=== PATIENT | female | born 1995 | race Caucasian/White ===

== ENCOUNTER → 2016-11-26 | Outpatient (CLI) | payer OTHER ==
[2016-11-26 14:47] LABS: FREE T4 1.12 NG/DL (0.78-1.33)
[2016-11-27 08:50] LABS: THYROID PEROXIDASE ANTIBODY 141.2 U/ML (<60.0)
== END ==
LOC: M SMT 11:33
PROVIDERS: ATTEND Physician Assistant
DX: E03.9 Hypothyroidism, unspecified (principal)

== ENCOUNTER → 2016-11-27 | Outpatient (CLI) | payer OTHER ==
[2016-11-27 13:18] LABS: CONTROL LINE HCG INT CTR LINE PRESENT
[2016-11-27 13:39] LABS: PROLACTIN 12.1 NG/ML
== END ==
LOC: M SMT 10:48
PROVIDERS: ATTEND Nurse Practitioner Women's Health
DX: N92.6 Irregular menstruation, unspecified (principal)

== ENCOUNTER → 2016-12-24 | Outpatient (CLI) | payer OTHER ==
[2016-12-24 14:01] LABS: FREE T4 1.06 NG/DL (0.78-1.33)
== END ==
LOC: M SMT 10:31
PROVIDERS: ATTEND Physician Assistant
DX: E06.3 Autoimmune thyroiditis (principal)

== ENCOUNTER 2017-02-16 13:18 | Emergency (ER) | payer OTHER ==
[~2017-02-16] VITALS: Ht 162.6 cm; Wt 68.0 kg
[2017-02-16 13:36] VITALS: BP 129/74
[2017-02-16] MEDS ORDERED: ADACEL/BOOSTRIX VACCINE (DIPHTH/PERTUSS/ACELL/TETANUS)0.5ML SYR (90715) IM ONE (14:30)
== END 2017-02-16 15:01 | disposition home or self-care (01) ==
LOC: M ED 14:40
DX: S01.511A Laceration without foreign body of lip, initial encounter (principal); W26.8XXA Contact with other sharp object(s), not elsewhere classified, initial encounter; Y92.9 Unspecified place or not applicable; Y93.9 Activity, unspecified; Y99.9 Unspecified external cause status; Z88.2 Allergy status to sulfonamides

== ENCOUNTER 2017-06-10 09:21 | Emergency (ER) | payer OTHER ==
[~2017-06-10] VITALS: Ht 162.6 cm; Wt 66.8 kg
[2017-06-10 09:23] VITALS: BP 109/62
--- NOTE | 2017-06-10 11:06 | REP ---
OB sonogram: History: 10.5 weeks gestation. Pelvic pain. Findings: Transabdominal scanning demonstrates a viable single intrauterine gestation in a free-floating lie. [place]-rump length is 2.1 mm which corresponds to a 5 week 5 day gestational age estimate. heart rate is recorded at 100 beats per minute. No subchorionic hemorrhage is seen. There is a 2.6 cm right ovary and cyst consistent with corpus luteum. Impression: Viable single intrauterine gestation at 5 weeks 5 days by crown-rump length. ALISHA by sonography February 05, 2018. No complication identified. Signed by Rafael Lawler MD 06/10/2017 12:15 P
== END 2017-06-10 11:10 | disposition home or self-care (01) ==
LOC: M ED 09:21
DX: O26.891 Other specified pregnancy related conditions, first trimester (principal); Z3A.00 Weeks of gestation of pregnancy not specified; Z88.2 Allergy status to sulfonamides

== ENCOUNTER → 2017-06-12 | Outpatient (REF) | payer OTHER ==
[2017-06-12 20:03] LABS: MEAN CORPUSCULAR HEMOGLOBIN 29.8 pg (27.0-33.0); MEAN CORPUSCULAR HGB CONC 33.7 g/dl (32.0-36.5); MEAN CORPUSCULAR VOLUME 88.4 fl (80.0-96.0); RED CELL DISTRIBUTION WIDTH 12.5 % (11.5-14.5); WHITE BLOOD COUNT 8.7 K/mm3 (4.0-10.0)
[2017-06-12 20:41] LABS: FREE T4 1.69 NG/DL (0.76-1.46); HCG, SERUM QUANTITATIVE 63800 MIU/ML
== END ==
LOC: M LAB REF 13:57
PROVIDERS: ATTEND Advanced Practice Midwife
DX: O36.80X0 Pregnancy with inconclusive fetal viability, not applicable or unspecified (principal)

== ENCOUNTER → 2017-06-17 | Outpatient (REF) | payer OTHER ==
[2017-06-17 19:10] LABS: THYROXINE (T4) 10.6 UG/DL (4.5-12.0)
== END ==
LOC: M LAB REF 16:44
PROVIDERS: ATTEND Advanced Practice Midwife
DX: E03.9 Hypothyroidism, unspecified (principal)

== ENCOUNTER → 2017-08-07 | Outpatient (REF) | payer OTHER ==
[2017-08-07 14:07] LABS: FREE T4 1.08 NG/DL (0.76-1.46)
== END ==
LOC: M LAB REF 13:01
PROVIDERS: ATTEND Obstetrics & Gynecology
DX: E03.9 Hypothyroidism, unspecified (principal)

== ENCOUNTER → 2017-10-29 | Outpatient (REF) | payer OTHER, SELFPAY ==
[2017-10-29 14:32] LABS: FREE T4 1.11 NG/DL (0.76-1.46)
[2017-11-01 00:07] LABS: HSV TYPE I IgM AB <1:10 titer (<1:10); HSV TYPE II IgM ABY <1:10 titer (<1:10)
== END ==
LOC: M LAB REF 13:13
DX: O99.282 Endocrine, nutritional and metabolic diseases complicating pregnancy, second trimester (principal)
CPT/HCPCS: 84443

== ENCOUNTER → 2017-11-06 | Outpatient (CLI) | payer OTHER ==
[2017-11-06 18:41] LABS: GLUCOSE CHALLENGE TEST 1 HOUR 83 MG/DL (LESS THAN 140)
[2017-11-06 20:28] LABS: HEMOGLOBIN 11.2 g/dl (12.0-16.0); MEAN CORPUSCULAR HEMOGLOBIN 29.9 pg (27.0-33.0); MEAN CORPUSCULAR HGB CONC 32.9 g/dl (32.0-36.5); MEAN CORPUSCULAR VOLUME 90.7 fl (80.0-96.0); PLATELET COUNT, AUTOMATED 298 10^3/uL (150-450); RED BLOOD COUNT 3.75 10^6/uL (4.00-5.40); RED CELL DISTRIBUTION WIDTH 12.8 % (11.5-14.5); WHITE BLOOD COUNT 9.4 10^3/uL (4.0-10.0)
== END ==
LOC: M SMT 13:18
DX: Z34.82 Encounter for supervision of other normal pregnancy, second trimester (principal)
CPT/HCPCS: 82950

== ENCOUNTER → 2017-11-11 | Outpatient (REF) | payer OTHER ==
[2017-11-11 17:09] LABS: INFLUENZA A AMPLIFICATION POSITIVE (NEGATIVE); INFLUENZA B AMPLIFICATION NEGATIVE (NEGATIVE); RSV AMPLIFICATION NEGATIVE (NEGATIVE)
== END ==
LOC: M LAB REF 16:26
DX: J11.1 Influenza due to unidentified influenza virus with other respiratory manifestations (principal)

== ENCOUNTER → 2018-01-06 | Outpatient (REF) | payer OTHER | LOC: M LAB REF 13:11 | DX: Z34.03 Encounter for supervision of normal first pregnancy, third trimester (principal) ==

== ENCOUNTER 2018-02-05 03:46 | Inpatient (IN) | payer OTHER ==
[2018-02-05 05:35] LABS: HEMATOCRIT 33.8 % (36.0-47.0); HEMOGLOBIN 11.3 g/dl (12.0-15.5); MEAN CORPUSCULAR HEMOGLOBIN 29.4 pg (27.0-33.0); MEAN CORPUSCULAR HGB CONC 33.4 g/dl (32.0-36.5); PLATELET COUNT, AUTOMATED 309 10^3/uL (150-450); RED BLOOD COUNT 3.84 10^6/uL (4.00-5.40); RED CELL DISTRIBUTION WIDTH 13.2 % (11.5-14.5); WHITE BLOOD COUNT 15.7 10^3/uL (4.0-10.0)
[2018-02-05] MEDS: BUTORPHANOL 2 MG/ML INJ (J0595) IV (07:44)
[2018-02-05] MEDS: PROMETHAZINE INJ 25 MG/ML VIAL (J2550) IM (07:45)
[2018-02-05] MEDS ORDERED: FENTANYL 2MCG/ML ROPIVACAINE 0.2% IN 0.9% NACL 200ML IVBAG As Ordered (11:36)
[2018-02-05] MEDS ORDERED: NALOXONE INJ 0.4 MG/1 ML VIAL (J2310) IV (13:00)
[2018-02-05] MEDS ORDERED: FENTANYL/ROPIVACAINE/NACL BAG 200 ML EPIDURAL (13:00)
[2018-02-05] MEDS ORDERED: LACTATED RINGER'S 1000 ML IV (13:00)
[2018-02-05] MEDS ORDERED: EPIDURAL COMMENT XX (13:00)
[2018-02-05] MEDS ORDERED: ePHEDrine SULFATE 25 MG/5 ML(5MG/ML) SYRINGE IV (13:00)
[2018-02-05] MEDS ORDERED: diphenhydrAMINE INJ 50MG/ML VIAL (J1200) IV (13:00)
[2018-02-05] MEDS ORDERED: EPIDURAL/PCA KEYS XX (13:00)
[2018-02-05] MEDS ORDERED: REFRIGERATOR IV KEYS XX (13:00)
[2018-02-05] MEDS: OXYTOCIN DRIP 30 UNITS in APPROPRIATE DILUENT 1 EA IV (13:53)
[2018-02-05] MEDS: LR 1,000 ML IV (13:53)
[2018-02-05] MEDS: ONDANSETRON 4MG/2ML VIAL (J2405) IV (18:24)
[2018-02-05] MEDS ORDERED: MEASLES,MUMPS,RUBELLA VACCINE INJ (MMR-II) (90707) SC (20:15)
[2018-02-05] MEDS ORDERED: DOCUSATE SODIUM 100 MG CAP PO (20:15)
[2018-02-05] MEDS ORDERED: RHOGAM 300 MCG (1500 IU) INJ (J2790) IM (20:15)
[2018-02-05] MEDS ORDERED: DIBUCAINE 1% OINTMENT 30GM TOP (20:15)
[2018-02-05] MEDS ORDERED: ACETAMINOPHEN 500 MG TAB PO (20:15)
[2018-02-05] MEDS ORDERED: METHYLERGONOVINE MALEATE 0.2 MG TAB PO (20:15)
[2018-02-05] MEDS ORDERED: ANUSOL HC CREAM 30GM TOP (20:15)
[2018-02-05 20:18] LABS: CORD GAS ABE V -5.5; CORD GAS HCO3 V 19.9 MEQ/L; CORD GAS O2 SAT V 65.7 %; CORD GAS PCO2 V 38.7 mmHg; CORD GAS PO2 V 30.5 mmHg; CORD GAS SBC V 19.3 MEQ/L; CORD GAS TCO2 V 21.1 MEQ/L
[2018-02-05 20:23] LABS: CORD GAS ABE A -5.4; CORD GAS HCO3 A 24.2 MEQ/L; CORD GAS O2 SAT A 26.8 %; CORD GAS PCO2 A 67.4 mmHg; CORD GAS PH A 7.173 UNITS; CORD GAS PO2 A 18.1 mmHg; CORD GAS SBC A 18.6 MEQ/L; CORD GAS TCO2 A 26.3 MEQ/L
[2018-02-05] MEDS: LACTATED RINGER'S 1000 ML IV (23:29)
[2018-02-06] MEDS: IBUPROFEN 800 MG TAB PO (08:06)
[2018-02-06] MEDS: PRENATAL VITAMINS CHEWABLE TABLET PO (08:06)
[2018-02-07] MEDS: IBUPROFEN 800 MG TAB PO (08:01)
[2018-02-07] MEDS: PRENATAL VITAMINS CHEWABLE TABLET PO (08:01)
== END 2018-02-07 12:00 | disposition home or self-care (01) | DRG 560 ==
LOC: M LDO 03:46 → M LDI 04:40 → M OBS 21:50
PROVIDERS: Obstetrics & Gynecology
PROC: 10E0XZZ Delivery of Products of Conception, External Approach (ICD-10-PCS; principal; 2018-02-05)
PROC: 0KQM0ZZ Repair Perineum Muscle, Open Approach (ICD-10-PCS; 2018-02-05)
DX: O48.0 Post-term pregnancy (principal); O70.1 Second degree perineal laceration during delivery; Z37.0 Single live birth; Z3A.40 40 weeks gestation of pregnancy

== ENCOUNTER → 2018-07-02 | Outpatient (REF) | payer OTHER ==
[2018-07-02 14:39] LABS: FREE T4 0.95 NG/DL (0.76-1.46)
== END ==
LOC: M LAB REF 13:59
DX: Z13.29 Encounter for screening for other suspected endocrine disorder (principal)

== ENCOUNTER → 2018-07-13 | Outpatient (REF) | payer OTHER ==
[2018-07-13 14:31] LABS: HCG, SERUM QUANTITATIVE < 1.0 MIU/ML
== END ==
LOC: M LAB REF 13:37
DX: N92.6 Irregular menstruation, unspecified (principal)

== ENCOUNTER → 2018-11-09 | Outpatient (REF) | payer OTHER ==
[~2018-11-09] MED LIST: IBUP-1114 PO; MAPA500T2 PO; PRENTAB9 PO
== END ==
LOC: M LAB REF 16:25
PROVIDERS: ATTEND Physician Assistant
DX: J02.9 Acute pharyngitis, unspecified (principal)

== ENCOUNTER → 2021-01-11 | Outpatient (REF) | payer OTHER ==
[2021-01-11 18:27] LABS: HEMATOCRIT 36.2 % (36.0-47.0); MEAN CORPUSCULAR HEMOGLOBIN 29.3 pg (27.0-33.0); MEAN CORPUSCULAR HGB CONC 33.1 g/dl (32.0-36.5); MEAN CORPUSCULAR VOLUME 88.5 fl (80.0-96.0); PLATELET COUNT, AUTOMATED 245 10^3/uL (150-450); RED BLOOD COUNT 4.09 10^6/uL (4.00-5.40); WHITE BLOOD COUNT 6.5 10^3/uL (4.0-10.0)
[2021-01-11 19:16] LABS: FREE T3 2.9 PG/ML (2.2-4.0); FREE T4 1.05 NG/DL (0.76-1.46); HCG, SERUM QUANTITATIVE 15351 MIU/ML; HEPATITIS C VIRUS ABY INDEX < 0.0 INDEX (<0.8); HIV 1&2 SCREEN CENTAUR NEGATIVE (NEGATIVE)
== END ==
LOC: M LAB REF 16:12
PROVIDERS: ATTEND Obstetrics & Gynecology
DX: O36.80X0 Pregnancy with inconclusive fetal viability, not applicable or unspecified (principal)

== ENCOUNTER → 2021-06-20 | Outpatient (CLI) | payer OTHER ==
[2021-06-20 12:46] LABS: HEMATOCRIT 35.2 % (36.0-47.0); HEMOGLOBIN 11.6 g/dl (12.0-15.5); MEAN CORPUSCULAR HEMOGLOBIN 30.3 pg (27.0-33.0); MEAN CORPUSCULAR VOLUME 91.9 fl (80.0-96.0); PLATELET COUNT, AUTOMATED 252 10^3/uL (150-450); RED BLOOD COUNT 3.83 10^6/uL (4.00-5.40)
[2021-06-21 07:09] LABS: WHITE BLOOD COUNT 8.7 10^3/uL (4.0-10.0)
== END ==
LOC: M LAB 11:10
PROVIDERS: ATTEND Obstetrics & Gynecology
DX: Z34.82 Encounter for supervision of other normal pregnancy, second trimester (principal); Z3A.00 Weeks of gestation of pregnancy not specified

== ENCOUNTER 2021-08-03 17:12 | Outpatient (CLI) | payer OTHER ==
[~2021-08-03] VITALS: Ht 162.6 cm; Wt 71.6 kg
[2021-08-03 17:34] VITALS: BP 119/67
--- NOTE | 2021-08-03 18:19 | IPNPDOC ---
Text Note Date of Service The patient was seen on 08/03/21. NOTE S: Eliane is a 26 year old at 34 6/7 who presents to Labor and Delivery Triage with complaints of RUQ abdominal pain, cloudy urine, nausea and vomiting that began this morning. She has received her care through [facility] and her course has been uncomplicated. She reports eating chicken nuggets for dinner last night, a bagel with both but ter and cream cheese for breakfast, and then ice cream to relieve her discomfort. She has drank little fluids today due to her nausea. Eliane denies vaginal bleeding or loss of fluid. She reports good movement. O: VS-see below FHR with 140 baseline and moderate variability. Rivers reveals rare contractions vs uterine irritability Examination: General-alert and oriented x 3 Respiratory-breathing comfortably on room air Abdomen-gravid uterus, soft, NTTP A: IUP at 34 6/7 with RUQ pain, nausea and vomiting, reassuring monitoring strip P: Urine culture, CBC, Liver profile, amylase and lipase, and gallbladder ultrasound. Continue with monitoring F/u per labs and imaging VS,Fishbone, I+O VS, Fishbone, I+O Vital Signs Date Time Temp Pulse Resp B/P (MAP) Pulse Ox O2 Delivery O2 Flow Rate FiO2 08/03/21 17:34 97.8 64 18 119/67 (84) Alesha Herrmann CNM Aug 03, 2021 18:18
[2021-08-03 18:39] LABS: HEMATOCRIT 35.9 % (36.0-47.0); HEMOGLOBIN 11.9 g/dl (12.0-15.5); MEAN CORPUSCULAR HEMOGLOBIN 30.1 pg (27.0-33.0); MEAN CORPUSCULAR HGB CONC 33.1 g/dl (32.0-36.5); MEAN CORPUSCULAR VOLUME 90.7 fl (80.0-96.0); PLATELET COUNT, AUTOMATED 264 10^3/uL (150-450); RED BLOOD COUNT 3.96 10^6/uL (4.00-5.40); WHITE BLOOD COUNT 10.5 10^3/uL (4.0-10.0)
[2021-08-03 18:46] LABS: AMORPHOUS SEDIMENT SMALL (NEGATIVE); APPEARANCE, URINE CLOUDY (CLEAR); BACTERIA, URINE AUTO NEGATIVE (NEGATIVE); BILIRUBIN, URINE AUTO NEGATIVE (NEGATIVE); BLOOD, URINE BLOOD NEGATIVE (NEGATIVE); COLOR, URINE YELLOW (YELLOW); GLUCOSE, URINE (UA) AUTO NEGATIVE (NEGATIVE); KETONE, URINE AUTO TRACE mg/dL (NEGATIVE); LEUKOCYTE ESTERASE, URINE AUTO TRACE (NEGATIVE); MUCUS, URINE SMALL (NEGATIVE); NITRITE, URINE AUTO NEGATIVE (NEGATIVE); PROTEIN, URINE AUTO NEGATIVE (NEGATIVE); RBC, URINE AUTO 1 /HPF (0-3); SPECIFIC GRAVITY URINE AUTO 1.016 (1.002-1.035); SQUAMOUS EPITHELIAL CELL UR AU 2 /HPF (0-6); UROBILINOGEN, URINE AUTO 0.2 mg/dL (0.0-2.0); WBC, URINE AUTO 0 /HPF (0-3)
[2021-08-03 19:06] LABS: ALBUMIN 2.6 GM/DL (3.2-5.2); ALT/SGPT 14 U/L (12-78); AMYLASE 67 U/L (25-115); BILIRUBIN,DIRECT < 0.1 MG/DL (0.0-0.2); BILIRUBIN,TOTAL 0.2 MG/DL (0.2-1.0); LIPASE 108 U/L (73-393); TOTAL PROTEIN 6.4 GM/DL (6.4-8.2)
[2021-08-03 19:10] VITALS: BP 121/65
--- NOTE | 2021-08-03 20:08 | REP ---
INDICATION: RUQ pain and nausea. COMPARISON: None. TECHNIQUE: Real-time sonographic evaluation of right upper quadrant performed. FINDINGS: The gallbladder demonstrates no evidence of intraluminal sludge or calculi, wall thickening or pericholecystic fluid. There is no intrahepatic or extrahepatic biliary dilatation, common bile duct measures 6 mm in maximum diameter. The liver demonstrates homogeneous echotexture with no gross mass. The pancreas demonstrates homogeneous echotexture with no gross mass. The right kidney demonstrates no hydronephrosis, with a normal size of 11.2 cm in length. No free fluid is seen. Live intrauterine fetus demonstrates vertex position with heart rate 136 beats per minute. IMPRESSION: Negative right upper quadrant ultrasound. <Electronically signed by Pablo White > 08/03/212004
[2021-08-03 20:56] VITALS: BP 120/60
[2021-08-04] MEDS ORDERED: PRENATAL VITAMINS CHEWABLE TABLET PO SCH (09:00)
== END 2021-08-03 22:07 | disposition home or self-care (01) ==
LOC: M LDO 17:12
PROVIDERS: ATTEND Advanced Practice Midwife
DX: O21.9 Vomiting of pregnancy, unspecified (principal); R10.11 Right upper quadrant pain; Z3A.34 34 weeks gestation of pregnancy

== ENCOUNTER → 2021-08-07 | Outpatient (REF) | payer OTHER | LOC: M LAB REF 16:39 | PROVIDERS: ATTEND Advanced Practice Midwife | DX: Z34.83 Encounter for supervision of other normal pregnancy, third trimester (principal); Z3A.00 Weeks of gestation of pregnancy not specified ==

== ENCOUNTER 2021-08-30 05:08 | Inpatient (IN) | payer OTHER ==
[2021-08-30] VITALS (40 sets, daily range): BP systolic 91–122; BP diastolic 50–78
[~2021-08-30] VITALS: Ht 162.6 cm; Wt 72.7 kg
[2021-08-30] MEDS ORDERED: PENICILLIN G POTASSIUM IV 5 MU in D5W MINI-BAG PLUS 100 ML IV ONE (06:15)
--- OUTSIDE RECORDS SUMMARY | 2021-08-30 06:22 | CCD ---
Author Author [facility] Organization [facility] Address Unknown Phone Unavailable Support Name Relationship Address Phone Joleen Alvarenga Next Of Kin Unknown Unavailable Chris KNUTSONMatheusie Next Of Kin [address] [place] [address] [place] [address] LOPEZWATL SCOTT Next Of Kin [address] [place] [address] JOLEEN ALVARENGA Next Of Kin [address] [place] [address] NEGRICHLAN Next Of Kin [address] [place] [address] NICE AND EASY Next Of Kin [address] [place] [address] [place] [address] NICE N' EASY Next Of Kin [address] [place] [address] UE Next Of Kin Unknown Unavailable KEYANNA LYNNE Next Of Kin [address] [address] JOLEEN LYNNE Next Of Kin [address] [place] [address] JOLEEN ALVARENGA [facility] [id number] [place] [address] Unavailable Re-disclosure Warning The records that you are about to access may contain information from federally-assisted alcohol or drug abuse programs. If such information is present, then the following federally mandated warning applies: This information has been disclosed to you from records protected by federal confidentiality rules (42 CFR part 2). The federal rules prohibit you from making any further disclosure of this information unless further disclosure is expressly permitted by the written consent of the person to whom it pertains or as otherwise permitted by 42 CFR part 2. A general authorization for the release of medical or other information is NOT sufficient for this purpose. The Federal rules restrict any use of the information to criminally investigate or prosecute any alcohol or drug abuse patient.The records that you are about to access may contain highly sensitive health information, the redisclosure of which is protected by Article 27-F of the [facility] Public Health law. If you continue you may have access to information: Regarding HIV / AIDS; Provided by facilities licensed or operated by the [facility] Office of Mental Health; or Provided by the [facility] Office for People With Developmental Disabilities. If such information is present, then the following [facility] mandated warning applies: This information has been disclosed to you from confidential records which are protected by state law. State law prohibits you from making any further disclosure of this information without the specific written consent of the person to whom it pertains, or as otherwise permitted by law. Any unauthorized further disclosure in violation of state law may result in a fine or penitentiary sentence or both. A general authorization for the release of medical or other information is NOT sufficient authorization for further disc losure. Family History Family Member Name Family Member Gender Family Member Status Date o f Status Description Data Source(s) Unknown Unknown Problem [facility] ([facility], [facility]) Medications Medication Brand Name Start Date Product Form Dose Route Admi nistrative Instructions Pharmacy Instructions Status Indications Reaction Description Data Source(s) Ondansetron 4 MG Disintegrating Oral Tablet ONDANSETRON 08/07/2021 12:00:00 AM EDT tablet,disintegrating 90 DISSOLVE O NE TABLET ON TONGUE EVERY 6 HOURS NEEDED FOR NAUSEA DISSOLVE ONE TABLET ON TONGUE EVERY 6 HO URS NEEDED FOR NAUSEA SOLD: 08/07/2021 [facility] 1 % 01/05/2021 12:00:00 AM EDT drops,suspension 10 INSTILL ONE DROP INTO BOTH EYES FOUR TIMES A DAY DIRECTED INSTILL ONE DROP INTO BOTH EYES FOUR TIMES A DAY DIRECTED SOLD: 01/05/2021 [facility] 0.3 % 12/16/2020 12:00:00 AM EST drops 5 INSTILL ONE DROP INTO EACH EYE EVERY HOUR INSTILL ONE DROP INTO EACH EYE EVERY HOUR SOLD: 12/20/2020 [facility] 1 % 12/16/2020 12:00:00 AM EST drops,suspension 10 INSTILL ONE DROP IN EACH EYE EVERY 2 HOURS INSTILL ONE DROP IN EACH EYE EVERY 2 HOURS SOLD: 12/20/2020 [facility] Insurance Providers Payer name Policy type / Coverage type Policy ID Covered republican ID Covered republican's relationship to smith Policy Smith Plan Information [employer]OM[employer] [id number] DA [id number] [employer] [id number] Family Dependent [employer] U [id number] Child [id number] Managed Care - MVP P UNAVAILABLE S UNAVAILABLE Medicaid S UNAVAILABLE S UNAVAILA BLE [employer] Commercial [id number] Self [id number] [employer] [id number] Family Dependent [id number] MVP Commercial [id number] Self [id number] [employer] [id number] Family Dependent [id number] MVP MCDHMO [id number] SP [id number] MEDICAID [id number] SP [id number] [employer] [id number] MO2 [id number] MVP MCDHMO [id number] SP [id number] SELF PAY ONLY SP BCBS [place] PPO [id number] [employer] PPO O [id number] D [id number] [employer] [id number] Family Dependent [id number] [employer] PPO O [id number] D [id number] [employer] COMP [id number] SP [id number] [employer] [id number] Family Dependent [id number] [employer] .[id number] F amily Dependent [employer] [id number] Family Dependent Medicaid S [id number] S [id number] [employer] [id number] FA [id number] Problems, Conditions, and Diagnoses No Information Surgeries/Procedures No Information Results ID Date Data Source [id number] 03/19/2021 12:00:00 AM EDT [facility] Name Value Range Interpretation Code Description Data Lissette rce(s) Supporting Document(s) IDNOW COVID-19 rapid diagnostic test (nucleic acid amp lification test NAAT) negative [facility] This lab was ordered by [facility] and re ported by [facility]. ID Date Data Source [id number] 10/09/2020 12:00:00 AM EST [facility] Name Value Range Interpretation Code Description Data Lissette rce(s) Supporting Document(s) SARS coronavirus 2 RNA [facility] This lab was ordered by [facility] and rep orted by [facility]. Procedure Social History No Information
[2021-08-30] MEDS ORDERED: PENICILLIN G POTASSIUM IV 5 MU in D5W MINI-BAG PLUS 100 ML IV STA (07:53)
[2021-08-30] MEDS ORDERED: LR 1,000 ML IV ONE (08:05)
[2021-08-30 08:21] LABS: HEMATOCRIT 35.6 % (36.0-47.0); HEMOGLOBIN 11.8 g/dl (12.0-15.5); MEAN CORPUSCULAR HEMOGLOBIN 29.8 pg (27.0-33.0); MEAN CORPUSCULAR HGB CONC 33.1 g/dl (32.0-36.5); MEAN CORPUSCULAR VOLUME 89.9 fl (80.0-96.0); PLATELET COUNT, AUTOMATED 276 10^3/uL (150-450); RED BLOOD COUNT 3.96 10^6/uL (4.00-5.40); WHITE BLOOD COUNT 10.1 10^3/uL (4.0-10.0)
--- NOTE | 2021-08-30 08:37 | HPEPDOC ---
Obstetrical History & Physical General Date of Admission Aug 30, 2021 at 06:15 History of Present Illness 26-year-old female at 38 5/7 weeks by LMP consistent with 8 week US (EDC = 09/08/21) presents with spontaneous loss of fluid per vagina beginning of admission. Contractions increased in intensity shortly thereafter, no bleeding. Good movement. Chief Complaint: Contractions, term Information Provided By: Patient Age: 26 : 2 Term: 1 Pre-term: 0 Abortions: 0 Livin Care Care: Good Care Dating Final EDC: Sep 08, 2021 Final EDC for Daily Update: Sep 08, 2021 Final EDC by: LMP, 1st trimester (US) Past Medical History Past Medical History Medical History OBhx: 2018 term 7lb 7oz female, no complications. Surgical History: Denies/None Family History Significant Family History: No pertinent family hx Social History Psychosocial History: No pertinent psych hx * Smoker: non-smoker Allergies Coded Allergies: Sulfa (Sulfonamide Antibiotics) (Unverified Allergy, Unknown, 08/03/21) Medications Scheduled No.137/Iron/Folic Acd ( Vitamin Tablet) 1 Tab Tab, 1 TAB PO DAILY Physical Examination Physical Examination GENERAL: Alert and oriented times three. BREAST: . ABDOMEN: Gravid and non-tender to touch. FETUS: Is vertex (VTX) by sterile vaginal examination (SVE), fetus is vertex (VTX) by Zachary. HEART RATE: Regular rate and rhythm. LUNGS: Clear to auscultation (CTA). EXTREMITIES: No edema. No clonus. Deep tendon reflexes (DTRs) + . Vital Signs/I&O Vital Signs Date Time Temp Pulse Resp B/P (MAP) Pulse Ox O2 Delivery O2 Flow Rate FiO2 08/30/21 07:06 97.2 72 117/78 (91) 08/30/21 05:45 18 Laboratory Data 24H LABS Laboratory Tests 2 08/30/21 06:20: Nucleated Red Blood Cells % (auto) 0.0 08/30/21 08:03: CBC/BMP Laboratory Tests 08/30/21 06:20 Pertinent Laboratoy Data Blood Type: O+ Group B Streptococcus: Positive Vaginal Examination Dilation: 4 cm Effacement: 70% Station: -2 Cervical Consistency: Soft Cervical Position: Posterior Presentation: Cephalic presentation Assessment Variability: Moderate Accelerations: Positive Decelerations: None Tocometer Contractions: Yes Frequency: regular Assessment/Plan Assessment Patient is a 26-year-old (G)2 para (P)1001 at 38+5 weeks by LMP consistent with 8-week ultrasound. Presents to Labor and Delivery (L&D) with spontaneous rupture of membranes in labor. Plan Admit and orient. Surveyor and consent. Diet: Liquids. Group B Streptococcus (GBS) positive. Anticipate normal spontaneous delivery (). C-S as appropriate. MARCIO MOSLEY OMS-3 Aug 30, 2021 08:37
[2021-08-30] MEDS ORDERED: FENTANYL 2MCG/ML ROPIVACAINE 0.2% IN 0.9% NACL 100ML IVBAG As Ordered ONE (08:52)
[2021-08-30] MEDS: LR 1,000 ML IV SCH ×3 (09:05→13:40)
[2021-08-30] MEDS ORDERED: NALOXONE INJ 0.4MG/1ML VIAL (J2310 PER 1MG) IV PRN (09:55)
[2021-08-30] MEDS ORDERED: EPIDURAL/PCA KEYS XX PRN (09:55)
[2021-08-30] MEDS ORDERED: REFRIGERATOR IV KEYS XX PRN (09:55)
[2021-08-30] MEDS ORDERED: ONDANSETRON 4MG/2ML VIAL IV PRN ×2 (09:55→19:25)
[2021-08-30] MEDS ORDERED: FENTANYL/ROPIVACAINE/NACL BAG 100 ML EPIDURAL SCH (09:55)
[2021-08-30] MEDS ORDERED: LACTATED RINGER'S 1000 ML IV PRN (09:55)
[2021-08-30] MEDS ORDERED: diphenhydrAMINE 50MG/ML VIAL (J1200) IV PRN (09:55)
[2021-08-30] MEDS ORDERED: EPIDURAL COMMENT XX SCH (09:55)
[2021-08-30] MEDS: ePHEDrine SULFATE 25 MG/5 ML(5MG/ML) SYRINGE IV PRN ×3 (10:06→10:15)
[2021-08-30] MEDS: PENICILLIN G POTASSIUM IV 2.5 MU in IV 1 EA IV SCH ×2 (10:41→14:43)
[2021-08-30] MEDS ORDERED: OXYTOCIN DRIP 30 UNITS in IV 1 EA IV SCH (11:20)
--- NOTE | 2021-08-30 16:06 | DNPDOC ---
[facility] Delivery Note Delivery Note DATE OF DELIVERY: August 30, 2021 PREDELIVERY DIAGNOSIS: 38-3/7 weeks' gestation and labor. POST DELIVERY DIAGNOSIS: Delivered. PROCEDURE: Spontaneous vaginal delivery. MAT CLEANING MACHINE OPERATOR: Dr. Christy Ibrahim MD ANESTHESIA: epidural. ESTIMATED BLOOD LOSS: 300 mL. FINDINGS: 6 pound 1 ounce female , Score 8/9. DELIVERY SUMMARY: Patient is a 26-year-old 2 now para 2 who was admitted to labor and delivery for labor with SROM. She required Pitocin augmentation. After a 5 minute second stage of labor she had a spontaneous vaginal delivery of a 6 lb. 1 oz. female . No nuchal cord. Shoulders delivered with ease. Placenta delivered spontaneously, and appeared intact. Pitocin augmentation administered after delivery of the placenta. No vaginal lacerations present. Sponge counts correct. CHRISTY IBRAHIM MD Aug 30, 2021 16:06
[2021-08-30] MEDS ORDERED: IBUPROFEN 800 MG TAB PO PRN (19:25)
[2021-08-30] MEDS ORDERED: OXYTOCIN DRIP 30 UNITS in IV 1 EA IV ONE (19:25)
[2021-08-30] MEDS ORDERED: ACETAMINOPHEN 500 MG TAB PO PRN (19:25)
[2021-08-30] MEDS ORDERED: MEASLES,MUMPS,RUBELLA VACCINE INJ (MMR-II) (90707) SC SCH (19:25)
[2021-08-30] MEDS ORDERED: DOCUSATE SODIUM 100MG CAPSULE PO PRN (19:25)
[2021-08-30] MEDS ORDERED: DIBUCAINE 1% OINTMENT 30GM TOP PRN (19:25)
[2021-08-30] MEDS ORDERED: METHYLERGONOVINE MALEATE 0.2 MG TAB PO PRN (19:25)
[2021-08-30] MEDS ORDERED: RHOGAM 300 MCG (1500 IU) INJ (J2790) IM SCH (19:25)
[2021-08-30] MEDS ORDERED: ACETAMINOPHEN TAB 650MG DOSE (2X325MG) PO PRN (19:25)
[2021-08-31 05:54] VITALS: BP 114/58
[2021-08-31] MEDS: IBUPROFEN 600MG TAB PO PRN ×2 (06:04→17:54)
[2021-08-31] MEDS: PRENATAL VITAMINS CHEWABLE TABLET PO SCH (08:08)
--- NOTE | 2021-08-31 08:34 | IPNPDOC ---
Text Note Date of Service The patient was seen on 08/31/21. NOTE PP #1 Feels well. Adequate pain management. Voiding VSS, afebrile, normotensive Breasts soft Fundus firm, NT, down 1 FB Lochia rubra light without odor Perineum intact without edema PP #1 Routine care. Anticipate D/C in am VS,Fishbone, I+O VS, Fishbone, I+O Vital Signs Date Time Temp Pulse Resp B/P (MAP) Pulse Ox O2 Delivery O2 Flow Rate FiO2 08/31/21 05:54 98.6 80 16 114/58 (76) I&O- Last 24 Hours up to 6 AM 08/31/21 05:59 Intake Total 2402 ml Output Total 1100 ml Balance 1302 ml Alesha Herrmann CNM Aug 31, 2021 08:34
[2021-08-31] MEDS ORDERED: HOME MED LIST COMPLETE! XX SCH (17:15)
[2021-08-31 18:00] VITALS: BP 121/59
[2021-09-01 06:00] VITALS: BP 113/69
[2021-09-01 08:00] VITALS: BP 121/69
[2021-09-01] MEDS ORDERED: INFLUENZA QUADRIVALENT PF VACCINE 0.5ML SYRINGE IM ONE (09:00)
[2021-09-01] MEDS ORDERED: BOOSTRIX/ADACEL VACCINE (DIPHTH/PERTUSS/ACELL/TETANUS) 0.5ML SYR IM ONE (09:00)
[2021-09-01] MEDS: PRENATAL VITAMINS CHEWABLE TABLET PO SCH (09:19)
[2021-09-01] MEDS ORDERED: COLA100C5 PO (11:33)
[2021-09-01] MEDS ORDERED: IBUP-1022 PO (11:33)
[2021-09-01] MEDS ORDERED: ACET-683 PO (11:33)
== END 2021-09-01 12:25 | disposition home or self-care (01) | DRG 560 ==
LOC: M LDO 05:08 → M LDI 06:15 → M OBS 18:40
PROVIDERS: ADMIT Advanced Practice Midwife; ATTEND Advanced Practice Midwife
PROC: 10E0XZZ Delivery of Products of Conception, External Approach (ICD-10-PCS; principal; 2021-08-30)
DX: O99.824 Streptococcus B carrier state complicating childbirth (principal); Z37.0 Single live birth; Z3A.38 38 weeks gestation of pregnancy

== ENCOUNTER → 2022-03-26 | Outpatient (CLI) | payer OTHER ==
[~2022-03-26] MED LIST changes: +ACET-683 PO; +COLA100C5 PO; +IBUP-1022 PO; +PROHANCE 279.3MG/ML 15ML VIAL As Ordered ONE
== END ==
LOC: M RAD 14:47
PROVIDERS: ATTEND Physician Assistant
DX: H91.93 Unspecified hearing loss, bilateral (principal)
CPT/HCPCS: 70553; A9576

== ENCOUNTER → 2022-04-05 | Outpatient (CLI) | payer OTHER ==
[~2022-04-05] MED LIST changes: -PROHANCE 279.3MG/ML 15ML VIAL As Ordered ONE
[2022-04-05 14:36] LABS: BASO # 0.1 10^3/uL (0.0-0.2); EOS # 0.4 10^3/uL (0.0-0.5); EOS % 6.2 % (0.0-3.0); HEMATOCRIT 38.6 % (36.0-47.0); HEMOGLOBIN 12.6 g/dl (12.0-15.5); MEAN CORPUSCULAR HGB CONC 32.6 g/dl (32.0-36.5); MEAN CORPUSCULAR VOLUME 88.9 fl (80.0-96.0); MONO # 0.4 10^3/uL (0.0-0.8); MONO % 6.7 % (2.0-8.0); NEUTROPHILS % 34.9 % (36.0-66.0); PLATELET COUNT, AUTOMATED 282 10^3/uL (150-450); RED BLOOD COUNT 4.34 10^6/uL (4.00-5.40); WHITE BLOOD COUNT 5.8 10^3/uL (4.0-10.0)
[2022-04-05 15:12] LABS: ALBUMIN 4.2 GM/DL (3.2-5.2); ALT/SGPT 14 U/L (12-78); BILIRUBIN,TOTAL 0.4 MG/DL (0.2-1.0); BLOOD UREA NITROGEN 14 MG/DL (7-18); CALCIUM LEVEL 9.4 MG/DL (8.5-10.1); CARBON DIOXIDE LEVEL 26 MEQ/L (21-32); CHLORIDE LEVEL 112 MEQ/L (98-107); CREATININE FOR GFR 0.79 MG/DL (0.55-1.30); FERRITIN 11 NG/ML (8-252); FREE T4 0.88 NG/DL (0.76-1.46); GLOMERULAR FILTRATION RATE > 60.0 (>60); GLUCOSE, FASTING 93 MG/DL (70-100); IRON (FE) 80 UG/DL (50-170); PERCENT SATURATION 19.9 % (13.2-45.0); POTASSIUM SERUM 4.2 MEQ/L (3.5-5.1); SODIUM LEVEL 143 MEQ/L (136-145); TOTAL IRON BINDING CAPACITY 402 UG/DL (250-450); TOTAL PROTEIN 7.2 GM/DL (6.4-8.2)
[2022-04-05 15:18] LABS: THYROID PEROXIDASE ANTIBODY > 1300.0 U/ML (<60.0); TOTAL 25(OH) VITAMIN D 33.6 NG/ML (30.0-100.0)
[2022-04-05 15:19] LABS: VITAMIN B12 LEVEL 371 PG/ML (247-911)
== END ==
LOC: M LAB 14:04
PROVIDERS: ATTEND Nurse Practitioner Adult Health
DX: E06.3 Autoimmune thyroiditis (principal); R53.83 Other fatigue

== ENCOUNTER → 2022-05-10 | Outpatient (CLI) | payer OTHER ==
[2022-05-10 11:02] LABS: FREE T4 0.99 NG/DL (0.76-1.46)
[2022-05-10 11:25] LABS: THYROID PEROXIDASE ANTIBODY > 1300.0 U/ML (<60.0)
== END ==
LOC: M LAB 09:40
PROVIDERS: ATTEND Nurse Practitioner Adult Health
DX: E06.3 Autoimmune thyroiditis (principal)

== ENCOUNTER → 2022-05-20 | Outpatient (CLI) | payer OTHER | LOC: M PLALAB 15:39 | PROVIDERS: ATTEND Nurse Practitioner Adult Health | DX: N91.2 Amenorrhea, unspecified (principal) ==

== ENCOUNTER → 2022-08-26 | Outpatient (CLI) | payer OTHER ==
[2022-08-26 19:03] LABS: HCG, SERUM QUANTITATIVE < 1.0 MIU/ML
[2022-08-26 21:17] LABS: PROGESTERONE 9.85 NG/ML
[2022-08-26 22:36] LABS: LUTEINIZING HORMONE 8.6 mIU/mL
== END ==
LOC: M PLALAB 16:41
PROVIDERS: ATTEND Nurse Practitioner Adult Health
DX: N91.2 Amenorrhea, unspecified (principal)

== ENCOUNTER → 2023-03-31 | Outpatient (CLI) | payer OTHER ==
[2023-03-31 18:08] LABS: FREE T4 1.04 NG/DL (0.89-1.76)
[2023-03-31 18:10] LABS: THYROID STIMULATING HORMONE 1.241 uIU/ML (0.55-4.78)
== END ==
LOC: M PLALAB 14:01
PROVIDERS: ATTEND Nurse Practitioner Adult Health
DX: E06.3 Autoimmune thyroiditis (principal); E55.9 Vitamin D deficiency, unspecified

== ENCOUNTER → 2023-05-28 | Outpatient (CLI) | payer OTHER ==
[2023-05-28 15:41] LABS: HIV SCREEN CENTAUR EXPOSED NEGATIVE (NEGATIVE)
[2023-05-28 19:30] LABS: GC DNA AMPLIFICATION POSITIVE (NEGATIVE)
[2023-05-29 07:10] LABS: HSV TYPE I IgG SPECIFIC <0.91 index (0.00-0.90); HSV TYPE II IgG SPECIFIC 7.21 index (0.00-0.90)
== END ==
LOC: M PLALAB 09:41
PROVIDERS: ATTEND Nurse Practitioner Adult Health
DX: Z20.2 Contact with and (suspected) exposure to infections with a predominantly sexual mode of transmission (principal)

== ENCOUNTER → 2023-07-29 | Outpatient (CLI) | payer OTHER | LOC: M PLALAB 16:18 | PROVIDERS: ATTEND Nurse Practitioner Adult Health | DX: N91.2 Amenorrhea, unspecified (principal) ==

== ENCOUNTER → 2025-01-27 | Outpatient (CLI) | payer OTHER | LOC: M PLALAB 15:57 | PROVIDERS: ATTEND Nurse Practitioner Adult Health | DX: N91.2 Amenorrhea, unspecified (principal) ==

== ENCOUNTER → 2025-02-23 | Outpatient (REF) | payer OTHER | LOC: M LAB REF 11:21 | PROVIDERS: ATTEND Obstetrics & Gynecology | DX: O02.1 Missed abortion (principal); Z3A.00 Weeks of gestation of pregnancy not specified ==

== ENCOUNTER → 2025-07-28 | Outpatient (CLI) | payer OTHER ==
[~2025-07-28] MED LIST changes: -IBUP-1022 PO; +IBUP600T42 PO
== END ==
LOC: M PLALAB 13:33
PROVIDERS: ATTEND Nurse Practitioner Adult Health
DX: R10.84 Generalized abdominal pain (principal)